=== PATIENT | male | born 1935 | race Caucasian/White ===

== ENCOUNTER 2022-07-04 10:20 | Outpatient (CLI) | payer MEDICARE, OTHER, SELFPAY ==
[2022-07-04 17:38] LABS: Chloride* 99 mmol/L (96-114); Potassium* 4.1 mmol/L (3.6-5.1); Sodium* 138 mmol/L (135-149)
[2022-07-04 17:40] LABS: Cholesterol* 171 mg/dL (90-199); Creatinine* 1.2 mg/dL (0.5-1.5); Estimated Glomerular Filt Rate 59 ml/min
[2022-07-04 17:41] LABS: Blood Urea Nitrogen* 17 mg/dL (7-30); Calcium* 9.8 mg/dL (8.4-10.6); Carbon Dioxide* 29 mmol/L (20-32); Glucose* 121 mg/dL (60-115); HDL Cholesterol* 71 mg/dL (>=40); LDL Cholesterol Calculated 79 mg/dL (<100); Triglycerides* 103 mg/dL (40-149)
== END 2022-07-04 10:21 | disposition home or self-care (01) ==
PROVIDERS: PCP Family Medicine; Visit Provider Family Medicine
DX: E66.9 Obesity, unspecified (principal); I67.9 Cerebrovascular disease, unspecified; I10 Essential (primary) hypertension; Z13.0 Encounter for screening for diseases of the blood and blood-forming organs and certain disorders involving the immune mechanism
CPT/HCPCS: 80048; 80061

== ENCOUNTER 2022-10-24 07:55 | Outpatient (CLI) | payer MEDICARE, OTHER, SELFPAY ==
--- NOTE | 2022-10-24 08:15 | CRLHL7_ITS ---
For Patients: As a result of the Century Cures Act, medical imaging exams and procedure reports are released immediately into your electronic medical record. You may view this report before your referring provider. If you have questions, please contact your health care provider. INDICATION: Low back pain. TECHNIQUE : Lumbar spine MRI without contrast. The following sequences were obtained: Sagittal T1, T2 weighted and STIR sequences. Axial T1 and T2 weighted sequences. COMPARISON: Lumbar spine radiographs from 11/08/2021. FINDINGS : Five lumbar type vertebral bodies, with the last fully formed disc space designated as L5-S1. Straightening of the typical lumbar lordosis. Mild levoconvex lumbar curve. No recent compression fracture or marrow replacing process. Lower cord/conus signal is normal. The conus terminates at a normal location. No intradural lesion. No extraspinal soft tissue abnormalities. Discs/Endplates: Bulky anterior/lateral paravertebral disc osteophytes at L1-2, L2-3 and L4-5. Advanced disc height loss, disc desiccation and degenerative endplate remodeling at L1-2 on the left, L2-3 on the left and L4-5 centrally/to the right. Mild disc height loss and disc desiccation at L3-4 and L5-S1. Findings at individual levels as follows: T12-L1: Mild disc bulge with right far lateral osteophytic ridging. Mild right neural foraminal stenosis. No left neural foraminal stenosis or spinal canal stenosis. L1-2: Moderate disc bulge with overlying osteophytic ridging. Bilateral facet arthrosis, greater on the left. Mild spinal canal stenosis and mild bilateral neural foraminal stenosis. L2-3: Moderate disc bulge with overlying osteophytic ridging, asymmetric to the left, where there is significant deformity of the left-sided psoas muscle. Mild spinal canal stenosis and left subarticular recess stenosis with contact and mild impingement of the traversing left L3 nerve root. Mild right and [id number] left neural foraminal stenosis with far-lateral contact/impingement of the left L2 nerve root. L3-4: 5 millimeters anterolisthesis. Superior disc unroofing superimposed moderate disc bulge with overlying osteophytic ridging, asymmetric to the right. A small central herniation with slight cranial migration. High-grade bilateral facet arthrosis. Advanced spinal canal stenosis and subarticular recess stenosis with further focal impingement of the traversing L4 nerve roots. Mild left and [id number] right neural foraminal stenosis. L4-5: Moderate disc bulge with bulky right far lateral osteophytic ridging. Bilateral facet arthrosis. Mild left and moderate right neural foraminal stenosis with far lateral impingement of the right L4 nerve root. L5-S1: Moderate disc bulge with overlying osteophytic ridging. Bilateral low-grade facet arthrosis. Mild bilateral foraminal stenosis. No spinal canal stenosis. Bilateral hyperplastic transverse processes which articulate with the sacral ala. Right-sided exuberant pedicles/transverse process bone marrow edema and hypertrophic pannus at the articulation. Imaged SI joints: Bilateral arthrosis with joint space narrowing and anterior osteophyte formation. Imaged sacrum: Within normal limits. IMPRESSION: 1. Diffuse advanced lumbar spondylosis with disc degeneration, degenerative subluxations and facet arthrosis. 2. At L2-3, left subarticular recess stenosis with mild impingement of the traversing left L3 nerve root. 3. At L3-4, advanced spinal canal stenosis and subarticular recess stenosis with further focal impingement of the traversing L4 nerve roots. 4. At L4-5, moderate right neural foraminal stenosis with far lateral impingement of the right L4 nerve root. 5. At L5-S1, right-sided transverse process/sacral ala pseudoarticulation with associated bone marrow edema and hypertrophic pannus. Correlate for clinical symptoms of Bertolotti syndrome. Dictated by Niraj Gold MD @ 10/24/2022 10:13:29 AM (Electronically Signed)
== END 2022-10-24 07:56 | disposition home or self-care (01) ==
LOC: MRI 07:57
PROVIDERS: PCP Family Medicine; Visit Provider Family Medicine
DX: M54.50 Low back pain, unspecified (principal); M48.061 Spinal stenosis, lumbar region without neurogenic claudication; M47.896 Other spondylosis, lumbar region
CPT/HCPCS: 72148

== ENCOUNTER 2022-11-14 10:05 | Outpatient (CLI) | payer MEDICARE, OTHER, SELFPAY | END 2022-11-14 10:06 | disposition home or self-care (01) | PROVIDERS: PCP Family Medicine; Visit Provider Family Medicine | DX: M54.16 Radiculopathy, lumbar region (principal); M48.062 Spinal stenosis, lumbar region with neurogenic claudication; M51.36 Other intervertebral disc degeneration, lumbar region | CPT/HCPCS: 62323; J0702; Q9966 ==

== ENCOUNTER 2022-12-11 13:00 | Outpatient (RCR) | payer MEDICARE, OTHER, SELFPAY ==
--- NOTE | 2022-11-22 15:10 | PT.OPEX ---
PT [facility] PT [facility] Eval Start: 11/22/22 14:00 Freq: Status: Active Protocol: Document 11/22/22 14:00 ARR (Rec: 11/22/22 15:07 ARR [id number]) E-signed By Dagmar Salgado DPT Physical Therapy Outpatient Evaluation Insurance Information Recert Due Date 02/20/23 Insurance Name Medicare B Medical Diagnosis M48.061 spinal stenosis, lumbar region without neurogenic claudication Degenerative lumbar spinal stenosis Treating Diagnosis M48.06 lumbar spinal stensosi M62.81 generalized lower extremity weakness Subjective Subjective -Comes to PT with spouse, Blanca. Complains of back weakness. No c/o pain. -Notices weakness in standing within 5 minutes, walking not very far then needs to sit and rest. No pain just weakness. Pt does feel like he could walk 30 min if needed to. Onset over a few months. Spouse notes that pt tends to be more so sedentary during the day. Doesn't walk much due to winter weather. 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 -Goals: get rid of the weakness PMHx: bilateral shoulder arthroscopy, bilat carpal tunnel surgery, cervical spine surgery, laparoscopic cholecystectomy, HS tendon rupture L side. Slight stroke few years ago impacting R side . LS MRI: 1. Diffuse advanced lumbar spondylosis with disc degeneration, degenerative subluxations and facet arthrosis. 2. At L2-3, left subarticular recess stenosis with mild impingement of the traversing left L3 nerve root. 3. At L3-4, advanced spinal canal stenosis and subarticular recess stenosis with further focal impingement of the traversing L4 nerve roots. 4. At L4-5, moderate right neural foraminal stenosis with far lateral impingement of the right L4 nerve root. 5. At L5-S1, right-sided transverse process/sacral ala pseudoarticulation with associated bone marrow edema and hypertrophic pannus. Correlate for clinical symptoms of Bertolotti syndrome. Objective Other/Pertinent Objective 30 sec chair stand test: 7x in 30 seconds no UE assist Functional Test Performed & Score EVAL 11/22/22: Posture: bilat knee flexion 20 *, loss of LS lordosis, stooped posture with increased lumbar forward flexion SLS (30 sec): unable due to imbalance Gait: wide KAILEY used with knee flexion 20* throughout gait cycle, lack of heel-toe pattern, inc'd foot/hip ER. Mild gait instability throughout RANGE OF MOTION: Lumbar ROM: -Flx: dec'd segmental mobility LS and TS with fingers to knees -Ext: 75% limitation in segmental mobility -R Rot: 75% limitation -L Rot: 75% limitation LE ROM (R/L): -Hip ER90: 60 R /70 L -Hip IR90: 0 R / 10 L -Hip flex: 95 R / 120 L -Hip ext passively in sidelying 30* flexion noting hip flexion contractures -Hip Abd supine: limited 20-30 * -Knee Ext: lacking 20* from full extension bilat STRENGTH -Grossly 3+ to 4- bilat LE 's based on functional mobility -Glut medius: 2/5 bilat Assessment Assessment/Impression Pt is a 86 y/o male who presents with concerns of low back weakness. Signs and symptoms likely indicating / consistent with lumbar spinal stenosis with loss of AROM following capsular pattern with most notable loss into extension, SB, rotation then flexion. 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 Patient is a good candidate for skilled therapy to target deficits described above. Skilled PT intervention is necessary for use of therapeutic exercise manual therapy, neuromuscular re- education, gait training, and therapeutic activity. Functional impairments include difficulty with: walking and standing. See appropriate sections of PT eval for complete list of goals and POC . D/C plan and criteria is for pt to achieve the goals as listed below or until max rehab potential is met. Pt was agreeable with plan of care and goals established. Plan of Care Physical Therapy Goals STG (within 7 visits) 1) Pt will initiate HEP without increased pain/ symptoms 2) Pt will report at least 60% improvement in self-perceived level of back fatigue since start of PT for return to PLOF 3) Pt will tolerate progression to standing strengthening without increased symptoms LTG (within 14 visits) 1) Pt will be indep with HEP for care home management of pain/symptoms 2) Pt will report at least 60% improvement in self-perceived level of back fatigue since start of PT for return to PLOF 3) Pt will demonstrate at least 11 reps of sit to/from standing in 30 sec without use of UE's to show improved functional strength 4) Pt will complete 6 MWT without device, no report of back fatigue or imbalance noted for improved community mobility Treatment Plan/Direct Interventions Gait Training,Joint Mobilization,Manual Therapy, Neuromuscular Re-ed, Therapeutic Activities, Therapeutic Exercises,Traction (Mechanical) Frequency/Duration 2x/wk for 14 visits in 90 days Patient Will Be Discharged From Therapy Skills [facility],Independent w/ HEP Evaluation Billing Untimed Code Treatment Minutes 25 Complexity Moderate Certification Information Initial Certification Date 11/22/22 Ending Certification Date 02/20/23 Provider Signature Shows Agreement With POC & Medical Necessity Physician Signature & Date Requested Please Sign/Date Here Physician Comment/Change : Physician NPI Number #
== END 2023-01-25 10:44 | disposition home or self-care (01) ==
PROVIDERS: PCP Family Medicine; Visit Provider Family Medicine
DX: M48.061 Spinal stenosis, lumbar region without neurogenic claudication (principal); M62.81 Muscle weakness (generalized); Z51.89 Encounter for other specified aftercare
CPT/HCPCS: 97012; 97110; 97140; 97162

== ENCOUNTER 2022-12-26 08:26 | Outpatient (CLI) | payer MEDICARE, OTHER, SELFPAY | END 2022-12-26 08:27 | disposition home or self-care (01) | LOC: INJ CL 08:27 | PROVIDERS: PCP Family Medicine; Visit Provider Family Medicine | DX: M54.16 Radiculopathy, lumbar region (principal); M51.36 Other intervertebral disc degeneration, lumbar region | CPT/HCPCS: 64483; J1100; Q9966 ==

== ENCOUNTER 2023-08-07 09:06 | Outpatient (CLI) | payer MEDICARE, OTHER, SELFPAY | END 2023-08-07 09:07 | disposition home or self-care (01) | PROVIDERS: PCP Family Medicine; Visit Provider Family Medicine | DX: I10 Essential (primary) hypertension (principal); E78.5 Hyperlipidemia, unspecified | CPT/HCPCS: 80048; 80061 ==

== ENCOUNTER 2023-12-25 08:37 | Outpatient (CLI) | payer MEDICARE, OTHER, SELFPAY | END 2023-12-25 08:38 | disposition home or self-care (01) | LOC: INJ CL 08:38 | PROVIDERS: PCP Family Medicine; Visit Provider Family Medicine | DX: M54.16 Radiculopathy, lumbar region (principal); M48.062 Spinal stenosis, lumbar region with neurogenic claudication | CPT/HCPCS: 64483; J1100; Q9966 ==

== ENCOUNTER 2024-02-05 09:04 | Outpatient (CLI) | payer MEDICARE, OTHER, SELFPAY | END 2024-02-05 09:05 | disposition home or self-care (01) | LOC: INJ CL 09:04 | PROVIDERS: PCP Family Medicine; Visit Provider Family Medicine | DX: M54.16 Radiculopathy, lumbar region (principal); M51.36 Other intervertebral disc degeneration, lumbar region | CPT/HCPCS: 62323; J0702; Q9966 ==

== ENCOUNTER 2024-10-29 08:39 | Outpatient (CLI) | payer MEDICARE, OTHER, SELFPAY | END 2024-10-29 08:40 | disposition home or self-care (01) | LOC: AMB 11-08 23:52 | PROVIDERS: PCP Family Medicine; Visit Provider Emergency Medicine Emergency Medical Services | DX: R55 Syncope and collapse (principal); R53.1 Weakness | CPT/HCPCS: A0998 ==

== ENCOUNTER 2024-11-12 08:15 | Outpatient (CLI) | payer MEDICARE, OTHER, SELFPAY | END 2024-11-12 08:16 | disposition home or self-care (01) | LOC: NFLDREF 11-19 01:02 | PROVIDERS: PCP Family Medicine; Referring Provider Family Medicine; Visit Provider Family Medicine | DX: E78.00 Pure hypercholesterolemia, unspecified (principal); I10 Essential (primary) hypertension; Z13.0 Encounter for screening for diseases of the blood and blood-forming organs and certain disorders involving the immune mechanism | CPT/HCPCS: 80048; 80061 ==